=== PATIENT | female | born 1975 ===

== ENCOUNTER 2017-02-20 06:04 | Inpatient (IN) | payer OTHER ==
[2017-02-18 11:54] VITALS: BMI 18.7
[2017-02-20] MEDS ORDERED: Lactated Ringer's 1,000 ML IV ONE ×2 (07:04→09:39)
--- NOTE | 2017-02-20 07:20 | CP.PCM.HP ---
History of Present Illness - History of Present Illness History of Present Illness: fibroid uterue,pelvic pain Present on Admission - Present on Admission Any Indicators Present on Admission: No History of DVT/PE: No History of Uncontrolled Diabetes: No Urinary Catheter: No Decubitus Ulcer Present: No Review of Systems - Constitutional Constitutional: As Per HPI - EENT Eyes: As Per HPI, Decreased Night Vision Nose/Mouth/Throat: As Per HPI - Breasts Breasts: As Per HPI - Cardiovascular Cardiovascular: As Per HPI - Respiratory Respiratory: As Per HPI - Gastrointestinal Gastrointestinal: As Per HPI - Genitourinary Genitourinary: As Per HPI - Reproductive: Female Reproductive:Female: As Per HPI - Menstruation Menstruation: As Per HPI - Musculoskeletal Musculoskeletal: As Per HPI - Neurological Neurological: As Per HPI - Psychiatric Psychiatric: As Per HPI - Endocrine Endocrine: As Per HPI - Hematologic/Lymphatic Hematologic: As Per HPI Past Patient History - Past Medical History & Family History Past Medical History?: No - Past Social History Smoking Status: Never Smoked - SURGICAL HISTORY Hx Surgeries: Yes Hx Breast Biopsy: Yes (RIGHT) Hx Musculoskeletal Surgery: Yes (BUNIONECTOMY RIGHT FOOT) - ANESTHESIA Hx Anesthesia: Yes Hx Anesthesia Reactions: No Hx Malignant Hyperthermia: No Has any member of the family had a problem w/ anesthesia?: No Meds Allergies/Adverse Reactions: Allergies Allergy/AdvReac Type Severity Reaction Status Date / Time No Known Allergies Allergy Verified 02/20/17 06:38 Results - Vital Signs Recent Vital Signs: Last Vital Signs Temp 98 F 02/20/17 06:53 Pulse 68 02/20/17 06:53 Resp 18 02/20/17 06:53 BP 103/59 L 02/20/17 06:53 Pulse Ox 100 02/20/17 06:53
[2017-02-20] MEDS ORDERED: DiphenhydrAMINE 50 mg/ml Inj IVP PRN (09:41)
[2017-02-20] MEDS: HYDROmorphone 0.5 mg/0.5 ml ISec IVP PRN ×2 (09:50→11:11)
[2017-02-20] MEDS ORDERED: Lactated Ringer's 1,000 ML IV SCH (09:57)
--- NOTE | 2017-02-20 15:28 | OP ---
PROCEDURE DATE: 02/20/2017 PREOPERATIVE DIAGNOSES: Fibroid uterus and pelvic pain. POSTOPERATIVE DIAGNOSES: Fibroid uterus and pelvic pain. SURGEON: Dr. Nogueira [employer] HELPER: Dr. Luis ANESTHESIA: ____, general anesthesia. PROCEDURE: Laparotomy with ____. ESTIMATED BLOOD LOSS: About 50 mL. DESCRIPTION OF PROCEDURE: With the patient in the supine position under general anesthesia, patient was prepped and draped in usual sterile manner. A Pfannenstiel incision was made and taken down thro ugh the fascia in layers. Fascia incised and extended bilaterally. The muscles from the f ascia by sharp dissection, after which the muscle was opened in midline with Libby clamps. Peritoneu m was grasped, incised and extended vertically. Upon entering abdominopelvic cavity, the bowel was p acked away with wet laps pushing it away from the operative field. The uterus was identified with a large fibroid on the right anterior side. The uterus was elevated. The incision was made and a vert ical incision on the uterus and the fibroid was removed sequentially by dissecting, blunt and sharp d issection. After that was removed, the incision site was closed with 2-0 chromic and 2-0 Vicryl, ray ntaining hemostasis and this was done in layers. After this was done, the pelvic cavity was irrigate d until clean. Interceed was applied to the site of the incision and hemostasis maintained. The per itoneum was then grasped with Libby clamps and closed with 1 Vicryl. Muscles approximated with 1 Matteo ryl. The fascia was closed with 1 Vicryl running interlocking stitch starting at each end and finish ing in the midline, Dr. Luis doing his side and I am doing my side. Subcutaneous layer was approx imated with 2-0 plain and the skin was closed in a subcuticular fashion with 3-0 Prolene. The patien t tolerated the procedure well and was in satisfactory condition on the way to recovery room. Dr. Luis was there from the beginning of the surgery. He assisted in preparing the patient for th e surgery and opening the fascia, he did his half and I did my half, and he assisted also in shelling out of the uterine fibroid. He also helped in closing the fascia and was present for the last stitc h that was laid. So, Dr. Luis assisted in the beginning through this surgery and also was present at the end of the surgery. Fred Nogueira MD cc: 22 TT: 02/20/2017 15:27:39 sn
[2017-02-20] MEDS: Lactated Ringer's 1,000 ML IV SCH (15:55)
[2017-02-20] MEDS: cefOXitin Sodium 1 GM in Sodium Chloride 0.9% 100 ML IVPB SCH (17:48)
[2017-02-21] MEDS: cefOXitin Sodium 1 GM in Sodium Chloride 0.9% 100 ML IVPB SCH (00:25)
[2017-02-21] MEDS: Lactated Ringer's 1,000 ML IV SCH (00:27)
[2017-02-21] MEDS ORDERED: Oxycodone/Acetaminophen 5/325 mg Tab PO PRN (12:57)
--- NOTE | 2017-02-21 13:00 | CP.PCM.PN ---
Subjective - Date & Time of Evaluation Date of Evaluation: 02/21/17 Time of Evaluation: 12:56 - Subjective Subjective: no complaints today stable pod 1 Objective - Vital Signs/Intake and Output Vital Signs (last 24 hours): Temp Pulse Resp BP Pulse Ox 98.9 F 84 18 113/69 96 02/21/17 08:38 02/21/17 08:38 02/21/17 08:38 02/21/17 08:38 02/21/17 08:38 Intake and Output: 02/21/17 02/21/17 06:59 18:59 Intake Total 2550 Output Total 1025 560 Balance 1525 -560 - Medications Medications: Current Medications Hydromorphone HCl (Dilaudid) 0.5 mg IVP Q10M PRN PRN Reason: Pain, moderate (4-7) Last Admin: 02/20/17 11:11 Dose: 0.5 mg Lactated Ringer's (Lactated Ringer's) 1,000 mls @ 125 mls/hr IV .Q8H TIA Last Admin: 02/21/17 00:27 Dose: 125 mls/hr Lactated Ringer's (Lactated Ringer's) 1,000 mls @ 125 mls/hr IV .Q8H TIA Ketorolac Tromethamine (Toradol) 30 mg IVP Q6 PRN PRN Reason: Pain, moderate (4-7) Last Admin: 02/21/17 02:35 Dose: 30 mg Ondansetron HCl (Zofran Inj) 4 mg IVP Q8 PRN PRN Reason: Nausea/Vomiting - Eye Exam Additional comments: v.s stable afebrile lungs clear incision clean and healing Assessment and Plan - Assessment and Plan (Free Text) Assessment: stable pod 1 s/p myomectomy Plan: continue present care dc hopson oob with assistance advance diet as tolerated may shower dc dressing
--- NOTE | 2017-02-22 11:27 | CP.PCM.PN ---
Subjective - Date & Time of Evaluation Date of Evaluation: 02/22/17 Time of Evaluation: 11:24 - Subjective Subjective: Denies SOB, chest or leg pain. voiding well flatus + but no bm yet, denies C/F. Objective - Vital Signs/Intake and Output Vital Signs (last 24 hours): Temp Pulse Resp BP Pulse Ox 98 F 82 20 109/74 98 02/22/17 08:27 02/22/17 08:27 02/22/17 08:27 02/22/17 08:27 02/22/17 08:27 - Medications Medications: Current Medications Ibuprofen (Motrin Tab) 800 mg PO Q8 PRN PRN Reason: Pain, Mild (1-3) Last Admin: 02/21/17 15:24 Dose: 800 mg Ondansetron HCl (Zofran Inj) 4 mg IVP Q8 PRN PRN Reason: Nausea/Vomiting Oxycodone/Acetaminophen (Percocet 5/325 Mg Tab) 1 tab PO Q6 PRN PRN Reason: Pain, moderate (4-7) Stop: 02/24/17 12:58 - Constitutional Appears: No Acute Distress - Head Exam Head Exam: ATRAUMATIC - Neck Exam Neck Exam: Full ROM - Respiratory Exam Respiratory Exam: NORMAL BREATHING PATTERN - GI/Abdominal Exam GI & Abdominal Exam: Normal Bowel Sounds Additional comments: soft not distended depressible no rebound, Incision clean and dry no suppt or discharge. No sign of infection. - Extremities Exam Additional comments: no leg edema or calf tenderness Teds in place - Neurological Exam Neurological Exam: Alert, Awake, Oriented x3 - Psychiatric Exam Psychiatric exam: Normal Affect, Normal Mood Assessment and Plan - Assessment and Plan (Free Text) Assessment: stable POD#2 Plan: Dulcolax suppt this pm and possible D/C home latter
[2017-02-22 12:22] VITALS: O2SAT 99
[2017-02-22 16:42] VITALS: BP 108/70; PULSE 79; RESP 20; TEMP 98
== END 2017-02-22 17:15 | disposition home or self-care (01) | DRG 743 ==
LOC: H.OPSURG 06:04 → H.PEDS 09:54
PROVIDERS: ADMIT Specialist; ATTEND Specialist
PROC: 0UB90ZZ Excision of Uterus, Open Approach (ICD-10-PCS; principal; 2017-02-20 07:45)
DX: D25.9 Leiomyoma of uterus, unspecified (principal)